=== PATIENT | female | born 2000 | race Caucasian/White ===

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

== ENCOUNTER 2019-03-25 22:12 | Emergency (ER) | payer OTHER ==
[2019-03-25 22:23] VITALS: BP 100/58; PULSE 79; TEMP 98.1; BMI 28.3
[2019-03-26] MEDS ORDERED: ONDANSETRON *ODT* 4 MG TABLET SL ONE (00:31)
[2019-03-26] MEDS ORDERED: ACETAMINOPHEN 325 MG TABLET (FP) PO ONE (00:31)
[2019-03-26 01:03] LABS: HCG,QUALITATIVE URINE Positive
[2019-03-26 01:04] LABS: BASO % 0.6 % (0-2.0); EOS % 1.2 % (0-4.5); HEMATOCRIT 37.1 % (32.4-45.2); HEMOGLOBIN 12.4 GM/dL (10.7-15.3); LYMPH % 24.2 % (8-40); MCH 30.1 pg (25.7-33.7); MCHC 33.4 g/dl (32.0-36.0); MEAN CELL VOLUME 90.4 fl (80-96); MEAN PLT VOLUME 7.9 fl (7.5-11.1); PLATELET COUNT 287 K/MM3 (134-434); RDW 13.2 % (11.6-15.6); WHITE BLOOD COUNT 11.2 K/mm3 (4.0-10.0)
[2019-03-26 01:09] LABS: EPI CELLS 16.1 /HPF (0-5/HPF); HYALINE CASTS 12 /lpf (0-8); PH,URINE 6.5 (5.0-8.0); URINE APPEARANCE CLOUDY; URINE BACTERIA 918.1 /hpf (NEGATIVE); URINE BILIRUBIN NEGATIVE (NEGATIVE); URINE COLOR YELLOW; URINE GLUCOSE (UA) NEGATIVE (NEGATIVE); URINE KETONE NEGATIVE (NEGATIVE); URINE LEUK ESTERASE TRACE (NEGATIVE); URINE NITRITE NEGATIVE (NEGATIVE); URINE PROTEIN NEGATIVE (NEGATIVE); URINE RBC 1 /hpf (0-4); URINE WBC 8 /hpf (0-5)
--- NOTE | 2019-03-26 01:53 | PDOC ---
History of Present Illness - General Chief Complaint: Nausea Stated Complaint: NAUSEA/ABD PAIN Time Seen by Provider: 03/26/19 00:19 History Source: Patient Exam Limitations: No Limitations Past History - Past Medical History Allergies/Adverse Reactions: Allergies Allergy/AdvReac Type Severity Reaction Status Date / Time No Known Allergies Allergy Verified 03/26/19 00:37 Home Medications: Ambulatory Orders Vit/Iron Fum/Folic AC [ Tablet] 1 each PO DAILY 02/16/18 Acetaminophen [Tylenol .Regular Strength -] 650 mg PO Q3H PRN tablet 02/18/18 Ferrous Sulfate [Feosol] 325 mg PO BID #60 tab 02/18/18 Ibuprofen [Motrin -] 200 mg PO Q4H PRN tablet 02/18/18 Cephalexin [Keflex] 500 mg PO BID #14 capsule 03/26/19 Asthma: No Cancer: No Cardiac Disorders: No COPD: No Diabetes: No HTN: No Seizures: No Thyroid Disease: No - Reproductive History Is Patient Now?: Yes Therapeutic (s) & number: No - Suicide/Smoking/Psychosocial Hx Smoking History: Never smoked Hx Alcohol Use: No Drug/Substance Use Hx: No Hx Substance Use Treatment: No *Physical Exam - Vital Signs Last Vital Signs Temp Pulse Resp BP Pulse Ox 98.1 F 79 18 100/58 L 100 03/25/19 22:21 03/25/19 22:21 03/25/19 22:21 03/25/19 22:21 03/25/19 22:21 - Physical Exam General Appearance: No: Apparent Distress Respiratory/Chest: positive: Lungs Clear, Normal Breath Sounds. negative: Respiratory Distress Cardiovascular: positive: Regular Rhythm, Regular Rate, S1, S2. negative: Murmur Female Pelvic Exam: negative: adnexal tenderness Gastrointestinal/Abdominal: positive: Normal Bowel Sounds, Soft. negative: Tender, Distended, Guarding, Rebound Integumentary: positive: Normal Color Neurologic: positive: Alert, Normal Mood/Affect ED Treatment Course - LABORATORY CBC & Chemistry Diagram: 03/26/19 00:48 03/26/19 00:48 - ADDITIONAL ORDERS Additional order review: Laboratory Results 03/26/19 00:38 Urine Color Yellow Urine Appearance Cloudy Urine pH 6.5 Ur Specific [place] 1.029 Urine Protein Negative Urine Glucose (UA) Negative Urine Ketones Negative Urine Blood Negative Urine Nitrite Negative Urine Bilirubin Negative Urine Urobilinogen 1.0 Ur Leukocyte Esterase Trace Urine WBC (Auto) 8 Urine RBC (Auto) 1 Urine Casts (Auto) 12 U Epithel Cells (Auto) 16.1 Urine Bacteria (Auto) 918.1 Urine HCG, Qual Positive 03/26/19 00:48 RBC 4.10 MCV 90.4 MCHC 33.4 RDW 13.2 MPV 7.9 Neutrophils % 66.0 D Lymphocytes % 24.2 D Monocytes % 8.0 D Eosinophils % 1.2 D Basophils % 0.6 D - RADIOLOGY Radiology Studies Ordered: Category Date Time Status TRANSVAGINAL US PREG [US] Stat Ultrasound 03/26/19 01:25 Taken - Medications Given in the ED: ED Medications Discontinued Medications Generic Name Dose Route Start Last Admin Trade Name Chitra PRN Reason Stop Dose Admin Acetaminophen 975 mg 03/26/19 00:31 03/26/19 00:37 Tylenol - PO 03/26/19 00:32 975 mg ONCE ONE Administration Ondansetron HCl 4 mg 03/26/19 00:31 03/26/19 00:37 Zofran Odt - SL 03/26/19 00:32 4 mg ONCE ONE Administration Medical Decision Making - Medical Decision Making 18 y/o with no sig PMH, no prior abd surgeries, presents with lower abd cramping x 3 days along with nausea and lightheadedness. Had 1 episode of NBNB emesis yesterday. LNMP was around end of January (not sure of exact date); has irregular periods. Denies fever, sob, cp, diarrhea, urinary complaints, vaginal bleeding. Patient UCG came back positive Bhcg pending Patient sent for transvaginal US to r/o ectopic 03/26/19 01:50 Ultrasound confirms IUP at 7 weeks UA with bacteria, 8 WBCs Given , will treat UCx collected Given Keflex 03/26/19 02:36 *DC/Admit/Observation/Transfer Diagnosis at time of Disposition: Qualifiers: Weeks of gestation: less than 8 weeks Qualified Code(s): Z3A.01 - Less than 8 weeks gestation of - Discharge Dispostion Disposition: HOME Condition at time of disposition: Stable Decision to Admit order: No - Prescriptions Prescriptions: Cephalexin [Keflex] 500 mg PO BID #14 capsule - Referrals Referrals: Maikel Manley [Primary Care Provider] - 2 Days - Patient Instructions Additional Instructions: Thank you for choosing [facility]. It was a pleasure taking care of you. You are 7 weeks 1 day per ultrasound results You were given antibiotics for possible urine infection Follow-up with your [employer] for further evaluation Return to the Emergency Department if your symptoms worsen or persist, you have severe abdominal pain, vomiting, vaginal bleeding or other concerning symptoms. - Post Discharge Activity
[2019-03-26] MEDS ORDERED: CEPHALEXIN MONOHYDRATE 500 MG CAPSULE (UD) PO ONE (02:31)
[2019-03-26 02:32] LABS: CREATININE 0.6 mg/dL (0.55-1.3); POTASSIUM 4.5 mmol/L (3.5-5.1)
[2019-03-26] MEDS ORDERED: CEPHALEXIN MONOHYDRATE 500 MG CAPSULE (UD) ONE (02:55)
== END 2019-03-26 02:58 | disposition home or self-care (01) ==
LOC: JER 22:12
DX: O26.891 Other specified pregnancy related conditions, first trimester (principal); R82.71 Bacteriuria; Z3A.01 Less than 8 weeks gestation of pregnancy
CPT/HCPCS: 36415; 76817-TC; 80048; 81003; 84702; 84703; 85025; 87086; 99282-25; Q0162

== ENCOUNTER 2020-04-03 21:53 | Emergency (ER) | payer OTHER ==
[2020-04-03] MEDS ORDERED: IBUPROFEN 600 MG TABLET (FP) PO ONE ×2 (22:14→22:17)
--- NOTE | 2020-04-03 22:14 | PDOC ---
History of Present Illness - General Chief Complaint: Sore Throat Stated Complaint: THROAT PAIN/HEADACHE Time Seen by Provider: 04/03/20 22:09 History Source: Patient - History of Present Illness Initial Comments: 04/03/20 22:16 19 year old female c/o throat pain, fever and cough x1 day. patient has a history of strep and took one dose of amoxicillin today. denies chest pain, shortness of breath, NVD LMP : 03/30/20 + covid (january 2020) Past History - Medical History Allergies/Adverse Reactions: Allergies Allergy/AdvReac Type Severity Reaction Status Date / Time No Known Allergies Allergy Verified 03/26/19 00:37 Home Medications: Ambulatory Orders Vit/Iron Fum/Folic AC [ Tablet] 1 each PO DAILY 02/16/18 Acetaminophen [Tylenol .Regular Strength -] 650 mg PO Q3H PRN tablet 02/18/18 Ferrous Sulfate [Feosol] 325 mg PO BID #60 tab 02/18/18 Ibuprofen [Motrin -] 200 mg PO Q4H PRN tablet 02/18/18 Cephalexin [Keflex] 500 mg PO BID #14 capsule 03/26/19 Amoxicillin 875 mg PO BID #20 tablet 04/03/20 Asthma: No Cancer: No Cardiac Disorders: No COPD: No Diabetes: No HTN: No Seizures: No Thyroid Disease: No - Reproductive History Therapeutic (s) & number: No - Psycho-Social/Smoking History Smoking History: Current some day smoker Have you smoked in the past 12 months: Yes Information on smoking cessation initiated: Yes - Substance Abuse Hx (Audit-C & DAST Scrn) How often the patient has a drink containing alcohol: Monthly or less How often the patient has six or more drinks on one occasion: Never Score: In Men: 4 or > Positive; In Women: 3 or > Positive: 1 Screen Result (Pos requires Nsg. Audit-10AR): Negative In the last yr the pt used illegal drug/Rx for NonMed reason: No Score: Yes response is considered Positive: 0 Screen Result (Positive result requires Nsg. DAST-10): Negative Review of Systems - Review of Systems Able to Perform ROS?: Yes Is the patient limited [place] proficient: No Constitutional: Yes: Fever HEENTM: Yes: Throat Pain. No: Symptoms Reported, See HPI, Eye Pain, Blurred Vision, Tearing, Recent change in vision, Double Vision, Cataracts, Ear Pain, Ocular Prothesis, Ear Discharge, Nose Pain, Nose Congestion, Tinnitus, Nose Bleeding, Hearing Loss, Throat Swelling, Mouth Pain, Dental Problems, Difficulty Swallowing, Mouth Swelling, Other Respiratory: Yes: Cough. No: Symptoms reported, See HPI, Orthopnea, Shortness of Breath, SOB with Exertion, SOB at Rest, Stridor, Wheezing, Productive cough, Hemoptysis, Other Cardiac (ROS): No: Symptoms Reported, See HPI, Chest Pain, Edema, Irregular Heart Rate, Lightheadedness, Palpitations, Syncope, Chest Tightness, Other ABD/GI: No: Symptoms Reported, See HPI, Abdominal Distended, Abd. Pain w/ defecation, Blood Streaked Bowels, Constipated, Diarrhea, Difficulty Swallowing, Nausea, Poor Appetite, Poor Fluid Intake, Rectal Bleeding, Vomiting, Indigestion, Abdominal cramping, Tarry Stools, Other *Physical Exam - Vital Signs Last Vital Signs Temp Pulse Resp BP Pulse Ox 98.9 F 82 20 101/56 L 98 04/03/20 22:09 04/03/20 22:09 04/03/20 22:09 04/03/20 22:09 04/03/20 22:09 - Physical Exam General Appearance: Yes: Appropriately Dressed HEENT: positive: Pharyngeal Erythema, Tonsillar Erythema. negative: Tonsillar Exudate Respiratory/Chest: positive: Lungs Clear, Normal Breath Sounds. negative: Chest Tender Cardiovascular: positive: Regular Rhythm, Regular Rate Extremity: positive: Normal Capillary Refill, Normal Inspection, Normal Range of Motion Integumentary: positive: Normal Color, Dry Neurologic: positive: Fully Oriented, Alert, Normal Mood/Affect Medical Decision Making - Medical Decision Making 04/03/20 22:26 A: pharyngitis; cough P: rapid strep: positive chest xray 04/03/20 22:58 Discharge - Discharge Information Problems reviewed: Yes Clinical Impression/Diagnosis: Cough Pharyngitis Qualifiers: Pharyngitis/tonsillitis etiology: streptococcus Qualified Code(s): J02.0 - Streptococcal pharyngitis Condition: Stable Disposition: HOME - Additional Discharge Information Prescriptions: Amoxicillin 875 mg PO BID #20 tablet - Follow up/Referral Referrals: Maikel Manley [Primary Care Provider] - - Patient Discharge Instructions Patient Printed Discharge Instructions: Sore Throat Additional Instructions: drink plenty of fluids. gargle with warm salty water take amoxicillin as prescribed. take ibuprofen every 6 hours as needed for fever/ bodyaches take Tylenol every 4-6 hours as needed for fever/ pain follow up with your doctor. return to the ER for any worsening symptoms return to the ER for any worsening symptoms. - Post Discharge Activity Work/Back to School Note: Back to Work
--- NOTE | 2020-04-03 22:14 | PDOC ---
Rapid Medical Evaluation Chief Complaint: Sore Throat Time Seen by Provider: 04/03/20 22:09 Medical Evaluation: Allergies Allergy/AdvReac Type Severity Reaction Status Date / Time No Known Allergies Allergy Verified 03/26/19 00:37 04/03/20 22:09 19 year old female with sore throat since yesterday. tmax 105? patient took one dose of amoxicillin at home. + covid early january. reports cough, denies chest pain, shortness of breath PE: patient alert ox3. pharyngeal erythema, tonsillar edema breath sounds clear A; pharyngitis? P; chest xray rapid strep/ Discharge Disposition - Diagnosis Pharyngitis Qualifiers: Pharyngitis/tonsillitis etiology: unspecified etiology Qualified Code(s): J02.9 - Acute pharyngitis, unspecified - Referrals - Patient Instructions - Post Discharge Activity
[2020-04-03 22:16] VITALS: BP 101/56; PULSE 82; TEMP 98.9; BMI 29.2
== END 2020-04-03 22:38 | disposition home or self-care (01) ==
LOC: JER 21:53
DX: J02.0 Streptococcal pharyngitis (principal); R05 Cough
CPT/HCPCS: 71046-TC-FY; 87880; 99283-25